=== PATIENT | female | born 1950 | race Caucasian/White ===

== ENCOUNTER → 2017-12-04 09:09 | Outpatient (CLI) | payer MEDICARE, MEDICAID, SELFPAY ==
--- NOTE | 2017-12-04 09:20 | CA_ITS ---
PROCEDURE: 2-D M-mode and color Doppler study INDICATIONS FOR THE TEST: Chest pain+ COPD Heart Murmur Tobacco Smoking Palpitations+ Fatigue Syncope Edema+ Hypertension+Diabetes Mellitus+ Rheumatic Fever SOB BURNS+Obesity+Hyperlipidemia+ Family History HD+ Additional History patient was scanned in wheelchair PATIENT INFORMATION HEIGHT: 59 WEIGHT: 186 GENDER: Female B/P: 154/82 2-D/M-MODE INTERPRETATION: 2-D MEASUREMENTS OBSERVED VALUES IN CMS Right Ventricular Dimension (RVDd) 1.7 Interventricular Septum (Thickness)(IVsd) 1.1 Left Ventricular Internal Dimensions(LVIDd) 3.6 Left Ventricular Posterior Wall (Thickness)(LVPWd) 1.1 Aortic Root 2.7 Aortic Cusp Separation 2.2 Left Atrial Dimensions (LAD) 3.0 2D 1. Left atrium is qualitatively mildly enlarged, left ventricle is normal size, there is mild concentric left ventricular hypertrophy, visually estimated ejection fraction 55% with no obvious wall motion abnormality. 2. The right atrium and right ventricle are mildly enlarged with normal contractility. 3. The aortic valve is minimally thickened and fibrosed. 4. The mitral and tricuspid valve leaflets are minimally thickened. 5. The pulmonic valve is poorly visualized. 6. No significant pericardial effusion noted. DOPPLER INTERROGATION: Doppler interrogation of the aortic, mitral and tricuspid valvular presence of mild mitral and tricuspid regurgitation, tricuspid and jet velocity insufficient for calculation of the right ventricular systolic pressure, Doppler evidence of impaired LV relaxation seen. CONCLUSION: 1. Mildly enlarged left atrium, normal left ventricular size, mild concentric left ventricular hypertrophy, visually estimated ejection fraction 55% no obvious regional wall motion abnormality. Doppler evidence of impaired LV relaxation seen. 2. Mild mitral and tricuspid regurgitation. 3. No significant pericardial effusion noted.
== END ==
PROVIDERS: PCP Internal Medicine Adolescent Medicine; Visit Provider Internal Medicine
DX: I25.10 Atherosclerotic heart disease of native coronary artery without angina pectoris (principal); I10 Essential (primary) hypertension; I50.20 Unspecified systolic (congestive) heart failure
CPT/HCPCS: 93306

== ENCOUNTER → 2019-06-01 07:35 | Outpatient (CLI) | payer MEDICARE, MEDICAID, SELFPAY ==
--- NOTE | 2019-06-01 07:37 | CA_ITS ---
PROCEDURE: 2-D M-mode and color Doppler study INDICATIONS FOR THE TEST: Chest pain COPD+ Heart Murmur Tobacco Smoking Palpitations Fatigue + Syncope Edema+ Hypertension+Diabetes Mellitus+ Rheumatic Fever SOB+BURNS+Obesity+Hyperlipidemia+ Family History HD Additional History WHEELCHAIR BOUND, CAD, PT SCANNED IN WHEELCHAIR PATIENT INFORMATION HEIGHT: 59 WEIGHT:190 GENDER: Female B/P:102/62 2-D/M-MODE INTERPRETATION: 2-D MEASUREMENTS OBSERVED VALUES IN CMS Right Ventricular Dimension (RVDd) 2.1 Interventricular Septum (Thickness)(IVsd) 1.3 Left Ventricular Internal Dimensions(LVIDd) 4.0 Left Ventricular Posterior Wall (Thickness)(LVPWd) 0.7 Aortic Root 3.1 Aortic Cusp Separation 2.0 Left Atrial Dimensions (LAD) 3.2 2D 1. Technically difficult study because of the patient's factors. 2. Left atrium is mildly enlarged, left ventricle is normal size, mild concentric left ventricular hypertrophy, visually estimated ejection fraction 50% with no regional wall motion abnormality. 3. The right atrium and right ventricle are normal size and contractility. 4. The aortic valve is thickened and calcified leaflet continue to display mobility. 5. The mitral and tricuspid valve leaflets are minimally thickened. 6. The pulmonic valve is poorly visualized. 7. No significant pericardial effusion noted. DOPPLER INTERROGATION: Doppler interrogation of the aortic, mitral and tricuspid valvular presence of mild mitral and tricuspid regurgitation, tricuspid regurgitation velocity is inadequate for calculation of the right ventricular systolic pressure, grade 1 diastolic dysfunction seen with tissue Doppler evidence of raised left atrial pressure. CONCLUSION: 1. Mildly enlarged left atrium, normal left ventricular size, mild concentric left ventricular hypertrophy, visually estimated ejection fraction 50% with no regional wall motion abnormality, grade 1 diastolic dysfunction seen with tissue Doppler evidence of raised left atrial pressure. 2. Thickened and calcified aortic valve without Doppler evidence of aortic stenosis aortic insufficiency. 3. Mild mitral and tricuspid regurgitation 4. No significant pericardial effusion noted.
== END ==
PROVIDERS: PCP Internal Medicine Adolescent Medicine; Visit Provider Nurse Practitioner Family
DX: E66.9 Obesity, unspecified (principal); I11.0 Hypertensive heart disease with heart failure; I25.10 Atherosclerotic heart disease of native coronary artery without angina pectoris; I50.20 Unspecified systolic (congestive) heart failure; R06.00 Dyspnea, unspecified
CPT/HCPCS: 93306

== ENCOUNTER → 2019-12-07 17:14 | Outpatient (CLI) | payer MEDICARE, MEDICAID, SELFPAY | PROVIDERS: PCP Internal Medicine Adolescent Medicine; Visit Provider Physician Assistant | DX: G47.33 Obstructive sleep apnea (adult) (pediatric) (principal); R06.83 Snoring; R40.0 Somnolence | CPT/HCPCS: G0399 ==

== ENCOUNTER 2020-08-05 09:31 | Emergency (ER) | payer MEDICARE, MEDICAID, SELFPAY ==
[2020-08-05 09:31] VITALS: BP 124/64; PULSE 87; RESP 18; TEMP 36.8; O2SAT 98; BMI 31.8
--- NOTE | 2020-08-05 09:36 | CT_ITS ---
PROCEDURE: CT CERVICAL SPINE WO CON CLINICAL INDICATION: FALL Neck injury with pain, contusion/abrasion or hematoma, cervical sprain/strain the COMPARISON: No exams were available for comparison TECHNIQUE: Axial images obtained with sagittal and coronal reformats. All CT scans at the facility use one or more dose reduction, viz: automated exposure control, ma/kV adjustment per patient size (including targeted exams where dose is matched to indication, i.e. head), or iterative reconstruction technique. Axial spiral CT scanning performed of the cervical spine beginning at the base of the skull and continuing to the upper T-spine. 3-D multiplanar reconstruction with 3-D manipulation of volumetric data set in image rendering was completed by the radiologist and/or technologist with the supervision of the radiologist on independent workstation. FINDINGS: There is normal alignment. No acute fracture or dislocation is evident. There is multilevel cervical spondylosis with facet arthritic changes at C3-C4 C5 and C6 C2-C3: Unremarkable. C3-C4: There is a lucent lesion involving the facet on the right at C4 measuring 5 mm and may contain a small central focus of gas possibly due to a geode. A similar lucency is present involving the C5 facet on the right. C4-C5: 3 mm anterolisthesis of C4 with degenerative disc disease. C5-C6: Degenerative disc disease. C6-C7: Degenerative disc disease. There is degenerative disc disease at T2-T3 and T3-T4. Lung apices are clear. There is concave deformity of the trachea and mainstem bronchi consistent with tracheal bronchomalacia. IMPRESSION: 1. No definite acute fracture. 2. Multilevel cervical spondylosis as described above with facet arthritic changes and probable geodes at C4 and C5 facet region on the right 3. 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
--- NOTE | 2020-08-05 09:36 | CT_ITS ---
PROCEDURE: CT HEAD/BRAIN WO CON CLINICAL INDICATION: FALL Wall with injury and pain, Head injury with headache/pain, contusion, abrasion or hematoma. Right frontal hematoma COMPARISON: No exams were available for comparison TECHNIQUE: Axial images obtained. All CT scans at the facility use one or more dose reduction, viz: automated exposure control, ma/kV adjustment per patient size (including targeted exams where dose is matched to indication, i.e. head), or iterative reconstruction technique. FINDINGS: No midline shift, mass effect, intracranial hemorrhage, hydrocephalus, or extra-axial fluid collection is evident. There is a mild degree of motion artifact which does obscure fine detail despite repeating the exam. Encephalomalacia changes are present in the left parietal lobe. There is a small right frontal scalp hematoma. The calvarium has an unremarkable appearance. No mastoid effusion. Mucosal thickening involves the maxillary sinuses inferiorly. No sinus air-fluid level. IMPRESSION: Motion artifact. No definite acute intracranial findings. Right frontal scalp hematoma Dictated by: Jose Oliveira MD 08/05/2020 10:49 Jose Oliveira MD in [facility] 08/05/2020 10:49
--- NOTE | 2020-08-05 09:40 | XR_ITS ---
PROCEDURE: XR HAND RT MIN 3V CLINICAL INDICATION: PINKY SWOLLEN Pain COMPARISON: No exams were available for comparison FINDINGS: There is a nondisplaced fracture involving the proximal aspect of the proximal phalanx of the 5th digit. No other significant anomalies are evident. IMPRESSION: Nondisplaced fracture proximal phalanx 5th digit Dictated by: Jose Oliveira MD 08/05/2020 10:55 Jose Oliveira MD in [facility] 08/05/2020 10:55
--- NOTE | 2020-08-05 09:54 | [facility].EDFALL ---
ED Disposition Clinical Impression: UTI (urinary tract infection) Qualifiers: Urinary tract infection type: acute cystitis Hematuria presence: without hematuria Qualified Code(s): N30.00 - Acute cystitis without hematuria Finger fracture, right Qualifiers: Encounter type: initial encounter Finger: little finger Fracture type: closed Phalanx: proximal Fracture alignment: nondisplaced Qualified Code(s): S62.646A - Nondisplaced fracture of proximal phalanx of right little finger, initial encounter for closed fracture Disposition: Home, Self-Care Condition on Discharge: Good Prescriptions: cephALEXin [Keflex 500mg Cap] 500 mg PO BID 7 Days #14 cap Prescription Printed Referrals: PCP,No [Primary Care Provider] - 3 days - Critical Care Critical Care Time: No Attestation: On 08/05/20, the high probability of a clinically significant, sudden or life threatening deterioration of the following system(s) required my full and direct attention, intervention and personal management. The time I documented below is in addition to time spent performing reported procedures but includes the following listed in this critical care notation. Medical Decision Making - Medical Records Medical records reviewed: Yes: I reviewed the patient's medical records. - Nelson Inquiry Pt receiving controlled substance: No Vital Signs: 08/05/20 09:31 Temperature 98.2 F Temperature Source Oral Pulse Rate [Right] 87 Respiratory Rate 18 Blood Pressure [Right Arm] 124/64 Blood Pressure Mean [Right Arm] 84 02 Sat by Pulse Oximetry 98 Oxygen Delivery Method Room Air - Lab Data Lab Results 08/05/20 09:50: WBC 9.9, RBC 4.80, Hgb 13.8, Hct 41.1, MCV 85.6, MCH 28.7, MCHC 33.5, RDW 15.5, Plt Count 207, MPV 8.4, Neut % (Auto) 75.8, Lymph % (Auto) 16.6, Cloud % (Auto) 5.9, Eos % (Auto) 1.1, Baso % (Auto) 0.5, Neut # (Auto) 7.5, Lymph # (Auto) 1.6, Cloud # (Auto) 0.6, Eos # (Auto) 0.1, Baso # (Auto) 0.1 08/05/20 09:50: Sodium 141, Potassium 4.0, Chloride 104, Carbon Dioxide 28, Anion Gap 13.0, BUN 33 H, Creatinine 0.80, Estimated Creat Clear 67, Estimated GFR 71, Est GFR ( Amer) 86, Glucose 153 H, Calcium 10.5 H 08/05/20 09:55: Urine Color Yellow, Urine Appearance Turbid, Urine pH 7.5, Ur Specific [place] 1.020, Urine Protein Negative, Urine Glucose (UA) Negative, Urine Ketones Negative, Urine Blood Trace-i, Urine Nitrate Positive, Urine Bilirubin Negative, Urine Urobilinogen 0.2, Ur Leukocyte Esterase 1+ A, Urine RBC 3-5, Urine WBC 3-5, Ur Squamous Epith Cells 3-5, Amorphous Sediment 2+, Urine Bacteria 2+ Result diagrams: 08/05/20 09:50 08/05/20 09:50 Orders (Tests/Meds): ED MEDICATIONS Generic Name Dose Route Start Last Admin Trade Name Freq PRN Reason Stop Dose Admin Ceftriaxone Sodium 1 gm/ 50 mls @ 100 mls/hr 08/05/20 10:15 Sodium Chloride IV 08/19/20 10:14 Q24H STEW Protocol ORDERS Category Date Time Status Urine Culture Stat Micro 08/05/20 09:55 Received - Radiology Data #1 Image(s): Hand Image Reviewed: Yes I reviewed the patient's radiology image Preliminary Findings: Abnormal Right fifth digit proximal phalanx fracture - CT Data CT Scan: Head, C-Spine Time Received: 11:[address] Reviewed: Yes: I have reviewed the patient's CT results Findings Narrative: No acute intracranial process, no cervical spine fracture Medical Decision Narrative: Patient with negative CT head and cervical spine here. She does have a UTI which perhaps attributes to her waxing and waning orientation. Given Rocephin here, will discharge back to halfway with prescription for Keflex. Renal function within acceptable limits, no leukocytosis or other signs of sepsis. Patient does have a proximal phalanx fracture of the right fifth digit which is chica taped to the ring finger of the same hand. Advised follow-up with primary care provider within the next several days for further evaluation. Fall HPI -
[2020-08-05 09:56] LABS: Basophils # 0.1 K/mm3 (0-0.2); Basophils % 0.5 % (0.1-2.0); Eosinophils # 0.1 K/mm3 (0.0-0.4); Eosinophils % 1.1 % (0.1-12.0); Hematocrit 41.1 % (37.0-47.0); Hemoglobin 13.8 g/dL (12.2-16.2); Lymphocytes # 1.6 K/mm3 (0.7-4.5); Lymphocytes % 16.6 % (10-50); Mean Corpuscular HGB Conc 33.5 g/dL (31.8-35.4); Mean Corpuscular Hemoglobin 28.7 pg (27.0-31.2); Mean Corpuscular Volume 85.6 fl (81-99); Mean Platelet Volume 8.4 fl (7.4-10.4); Monocytes # 0.6 K/mm3 (0.1-1.0); Monocytes % 5.9 % (1.7-9.3); Neutrophils # 7.5 K/mm3 (1.8-7.8); Neutrophils % 75.8 % (37.0-80.0); Platelet Count 207 K/mm3 (142-424); Red Cell Distribution Width 15.5 % (11.5-17.5); White Blood Count 9.9 K/mm3 (4.8-10.8)
[2020-08-05 09:58] LABS: Microscopic, Urine URINE MICROSCOPIC (MICROSCOPIC)
[2020-08-05 10:00] LABS: Appearance,Urine TURBID (Clear); Bilirubin,Urine Negative (Negative); Blood, Urine TRACE-I (Negative); Color,Urine YELLOW (Yellow); Glucose,Urine (UA) Negative (Negative); Ketones,Urine Negative (Negative); Leukocyte Esterase,Urine 1+ (Negative); Nitrate,Urine POSITIVE (Negative); PH,Urine 7.5 (5.0-8.5); Protein,Urine Negative (Negative); Urobilinogen,Urine 0.2 EU/dl (0.2)
[2020-08-05 10:00] LABS: Chloride 104 mmol/L (98-107); Sodium 141 mmol/L (136-145)
[2020-08-05 10:03] LABS: Blood Urea Nitrogen 33 mg/dl (7-17); Calcium 10.5 mg/dl (8.4-10.2); Carbon Dioxide 28 mmol/L (22.0-30.0); Creatinine Clearance Estimated 67 mL/min (50-200); Estimated Glomerular Filt Rate 71 ml/min (>60); GFR (African American) 86 ML/MIN (>60); Glucose 153 mg/dl (74-100)
[2020-08-05 10:05] LABS: Amorphous Sediment,Urine 2+ /lpf; Bacteria,Urine 2+ /lpf
[2020-08-05 11:32] VITALS: BP 109/72; PULSE 80; RESP 17; TEMP 36.8; O2SAT 95
--- NOTE | 2020-08-05 11:33 | PC.NURSE ---
CALLED [facility] FOR TRANSPORT TO RETIREMENT, REPORT CALLED TO YANNI VAZQUEZ
== END 2020-08-05 12:26 | disposition home or self-care (01) ==
PROVIDERS: Emergency Provider Emergency Medicine
DX: N30.00 Acute cystitis without hematuria (principal); S62.646A Nondisplaced fracture of proximal phalanx of right little finger, initial encounter for closed fracture; S00.90XA Unspecified superficial injury of unspecified part of head, initial encounter; W05.0XXA Fall from non-moving wheelchair, initial encounter; Y92.129 Unspecified place in nursing home as the place of occurrence of the external cause; I10 Essential (primary) hypertension; E78.5 Hyperlipidemia, unspecified; K21.9 Gastro-esophageal reflux disease without esophagitis; J44.9 Chronic obstructive pulmonary disease, unspecified; E11.9 Type 2 diabetes mellitus without complications; Z79.899 Other long term (current) drug therapy; Z88.2 Allergy status to sulfonamides; Z88.8 Allergy status to other drugs, medicaments and biological substances
CPT/HCPCS: 96365; 70450; 72125; 73130; 80048; 81001; 85025; 87086; 87088; 87186; 96367; 96374; 99283

== ENCOUNTER → 2020-08-09 13:10 | Outpatient (CLI) | payer MEDICARE, MEDICAID, SELFPAY ==
--- NOTE | 2020-08-09 14:16 | CT_ITS ---
PROCEDURE: CT HEAD/BRAIN WO CON CLINICAL INDICATION: FALL / CONCUSSION,AMS Altered mental status, altered level of consciousness, confusion, disorientation. Head injury with headache/pain, contusion, abrasion or hematoma COMPARISON: CT CT HEAD/BRAIN WO CON from 08/05/2020 TECHNIQUE: Axial images obtained. All CT scans at the facility use one or more dose reduction, viz: automated exposure control, ma/kV adjustment per patient size (including targeted exams where dose is matched to indication, i.e. head), or iterative reconstruction technique. FINDINGS: No midline shift, mass effect, intracranial hemorrhage, hydrocephalus, or extra-axial fluid collection is evident. Patient's head is tilted in the CT gantry. Encephalomalacia changes are present in the left parietal lobe. Right frontal scalp hematoma has shown some improvement. The calvarium has an unremarkable appearance. No mastoid effusion. No sinus air-fluid level. IMPRESSION: No acute intracranial finding Dictated by: Jose Oliveira MD 08/09/2020 14:34 Jose Oliveira MD in [facility] 08/09/2020 14:34
== END ==
PROVIDERS: PCP Internal Medicine Adolescent Medicine; Visit Provider Internal Medicine Adolescent Medicine
DX: R41.82 Altered mental status, unspecified (principal); S00.83XA Contusion of other part of head, initial encounter
CPT/HCPCS: 70450

== ENCOUNTER → 2020-08-23 10:06 | Outpatient (CLI) | payer MEDICARE, MEDICAID, SELFPAY ==
--- NOTE | 2020-08-23 10:13 | XR_ITS ---
PROCEDURE: XR SHOULDER LT MIN 2V CLINICAL INDICATION: left shoulder pain COMPARISON: CR CXR1 CHEST-PORTABLE from 07/04/2017 FINDINGS: There are severe osteoarthritic changes of the left shoulder joint with osteosclerosis and osteophyte formation the glenoid. The left humeral head is deformed with dysplastic changes of the humeral head suggestive of a Charcot joint. No acute fracture or dislocation IMPRESSION: Severe osteoarthritis of the left shoulder with dysplastic deformed changes of the humeral head suggestive of a Charcot joint Dictated by: Jose Oliveira MD 08/23/2020 16:47 Jose Oliveira MD in [facility] 08/23/2020 16:47
== END ==
PROVIDERS: PCP Internal Medicine Adolescent Medicine; Visit Provider Orthopaedic Surgery
DX: M25.512 Pain in left shoulder (principal)
CPT/HCPCS: 73030

== ENCOUNTER 2020-09-22 13:44 | Emergency (ER) | payer MEDICARE, MEDICAID, SELFPAY ==
[2020-09-22 13:44] VITALS: BP 128/68; PULSE 74; RESP 16; TEMP 36.6; O2SAT 98; BMI 27.3
--- NOTE | 2020-09-22 13:49 | PC.NURSE ---
Dr Rhea corbin
[2020-09-22 14:00] VITALS: BP 105/61; PULSE 78; O2SAT 96
--- NOTE | 2020-09-22 14:18 | XR_ITS ---
PROCEDURE: XR TIBIA FIBULA RT 2V CLINICAL INDICATION: fall Posttraumatic pain COMPARISON: No exams were available for comparison FINDINGS: There is a spiral nondisplaced fracture involving the distal shaft of the tibia nondisplaced. There is diffuse osteopenia. There is also nondisplaced distal fibular fracture transverse in nature. This is 6 cm proximal to the tip of the fibula. The joint spaces are well-preserved. No significant degenerative/arthritic changes. No erosive changes evident. Other findings:There is diffuse soft tissue swelling of foot IMPRESSION: Nondisplaced distal tib fib fracture with diffuse osteopenia. Dictated by: Jose Oliveira MD 09/22/2020 15:21 Jose Oliveira MD in [facility] 09/22/2020 15:21
--- NOTE | 2020-09-22 14:21 | CA_ITS ---
APPROVED REPORT Bilateral Lower Extremity Venous Study for DVT. Conversion Developer: SAI TsangT Indications Lower Extremity Edema: Bilateral swelling,pt has fx rle Risk Factors Immobility Obesity Bed Rest Vein Imaging CFV (R): compressive, spontaneous, phasic, augmentation FEM (R): compressive, spontaneous, phasic, augmentation POP (R): compressive, spontaneous, phasic, augmentation PTV (R): Compressible GSV (R): Compressible Peroneals (R):Not Visualized GAS (R): Compressible CFV (L): compressive, spontaneous, phasic, augmentation FEM (L): compressive, spontaneous, phasic, augmentation POP (L): compressive, spontaneous, phasic, augmentation PTV (L): Compressible GSV (L): Compressible Peroneals (L):Not Visualized GAS (L): Compressible Findings Study suggests no evidence of DVT of the bilateral lower extremities. Study suggests no evidence of SVT of the bilateral lower extremites. Conclusion Study suggests no evidence of DVT of the bilateral lower extremities. Study suggests no evidence of SVT of the bilateral lower extremites. Critical Notification Date: 09/22/2020 Time: 15:24 Physician Name: Dr. Garnica Electronically signed by : Jose Oliveira MD 09/22/2020 17:17:43
[2020-09-22 14:34] VITALS: BP 108/57; RESP 18; O2SAT 99
[2020-09-22 15:22] VITALS: BP 117/68; PULSE 77; RESP 20; O2SAT 94
--- NOTE | 2020-09-22 15:37 | HMH.EDFALL ---
ED Disposition Clinical Impression: Nondisplaced spiral fracture of shaft of right tibia Qualifiers: Encounter type: initial encounter Fracture type: closed Qualified Code(s): S82.244A - Nondisplaced spiral fracture of shaft of right tibia, initial encounter for closed fracture Disposition: Xfer SNF Condition on Discharge: Good Instructions: DI for Shinbone Fracture Referrals: Eduardo Moya MD [Primary Care Provider] - Masoud Gómez MD [Staff Physician] - - Critical Care Critical Care Time: No Attestation: On 09/22/20, the high probability of a clinically significant, sudden or life threatening deterioration of the following system(s) required my full and direct attention, intervention and personal management. The time I documented below is in addition to time spent performing reported procedures but includes the following listed in this critical care notation. Medical Decision Making - Medical Records Medical records reviewed: Yes: I reviewed the patient's medical records. - Nelson Inquiry Pt receiving controlled substance: No Vital Signs: 09/22/20 13:44 09/22/20 14:00 09/22/20 14:34 Temperature 98 F Temperature Source Oral Pulse Rate [Radial] 74 78 Respiratory Rate 16 18 Blood Pressure [Right Radial Artery] 128/68 105/61 L 108/57 L Blood Pressure Mean [Right Radial Artery] 88 75 74 Blood Pressure Source [Right Radial Artery] Automatic Cuff Automatic Cuff Blood Pressure Position [Right Radial Artery] Sitting Sitting Sitting 02 Sat by Pulse Oximetry 98 96 99 Oxygen Delivery Method Room Air Room Air Room Air 09/22/20 15:22 Temperature Temperature Source Pulse Rate [Radial] 77 Respiratory Rate 20 Blood Pressure [Right Radial Artery] 117/68 Blood Pressure Mean [Right Radial Artery] 84 Blood Pressure Source [Right Radial Artery] Automatic Cuff Blood Pressure Position [Right Radial Artery] Sitting 02 Sat by Pulse Oximetry 94 L Oxygen Delivery Method Room Air Orders (Tests/Meds): ED MEDICATIONS Discontinued Medications Generic Name Dose Route Start Last Admin Trade Name Freq PRN Reason Stop Dose Admin Acetaminophen 1,000 mg 09/22/20 13:47 09/22/20 14:01 Acetaminophen 500mg Tab PO 09/22/20 13:48 Not Given ONCE ONE Famotidine 20 mg 09/22/20 13:47 09/22/20 14:01 Famotidine 20mg/2ml Vial IV 09/22/20 13:48 Not Given ONCE ONE Sodium Chloride 1,000 mls @ 999 mls/hr 09/22/20 14:00 Sod Chlor 0.9% 1000ml Bag IV 09/22/20 15:00 .Q1H1M STEW Ondansetron HCl 4 mg 09/22/20 13:47 09/22/20 14:01 Ondansetron 4mg/2ml Vial IV 09/22/20 13:48 Not Given ONCE ONE Sodium Chloride 8 ml 09/22/20 13:47 Sodium Chloride 0.9% 10ml Vial IV 10/22/20 13:46 NEEDED PRN dilute pepcid ORDERS Category Date Time Status XR chest portable Stat Exams 09/22/20 13:47 Stop Req - Radiology Data #1 Image(s): Tib/Fib Image Reviewed: Yes I reviewed the patient's radiology results, Yes I reviewed the patient's radiology image Fracture of the distal right tibia with no significant displacement. - US Data US Images: Lower Extremity ED US Reviewed: Yes: I have reviewed the patient's US results Findings Narrative: No evidence of DVT in the lower extremities. - Reevaluation(s) Time: 15:42 Reevaluation #1: Evaluation, patient is feeling fine. Tolerated splinting well. Patient was sent back to intermediate facility. Needs follow-up with orthopedics. Demonstrate return precautions. Verbalized understanding. Medical Decision Narrative: 70-year-old female presented to the emergency department with leg pain. Patient has diagnosed fracture in the right tibia. Doppler studies will be obtained for possible DVT. Work-up initiated. Fall HPI - General Chief Complaint: Fall Stated Complaint: Fall Time Seen by Provider: 09/22/20 13:50 Mode of Arrival: EMS Limitations: Physical Limitations Description of Symptoms (Recalled from ER
--- NOTE | 2020-09-22 15:48 | PC.NURSE ---
posterior, stirrup splint applied
--- NOTE | 2020-09-22 15:49 | PC.NURSE ---
report called to [facility]
[2020-09-22 15:56] VITALS: BP 134/74; PULSE 78; RESP 16; TEMP 36.6; O2SAT 98
== END 2020-09-22 15:57 ==
PROVIDERS: Emergency Provider Emergency Medicine; PCP Internal Medicine Adolescent Medicine
DX: S82.244A Nondisplaced spiral fracture of shaft of right tibia, initial encounter for closed fracture (principal); W05.0XXA Fall from non-moving wheelchair, initial encounter; Y92.129 Unspecified place in nursing home as the place of occurrence of the external cause; G82.20 Paraplegia, unspecified; J44.9 Chronic obstructive pulmonary disease, unspecified; E11.9 Type 2 diabetes mellitus without complications; K21.9 Gastro-esophageal reflux disease without esophagitis; E78.5 Hyperlipidemia, unspecified; I10 Essential (primary) hypertension; Z88.2 Allergy status to sulfonamides; Z88.8 Allergy status to other drugs, medicaments and biological substances; Z79.899 Other long term (current) drug therapy
CPT/HCPCS: 29515; 73590; 93970; 99284

== ENCOUNTER → 2020-11-01 14:30 | Outpatient (CLI) | payer MEDICARE, MEDICAID, SELFPAY ==
--- NOTE | 2020-11-01 14:38 | XR_ITS ---
PROCEDURE: XR TIBIA FIBULA RT 2V CLINICAL INDICATION: right tibia spiral fracture; out of brace Follow-up fracture COMPARISON: CR XR TIBIA FIBULA RT 2V from 09/22/2020 FINDINGS: Nondisplaced oblique fracture distal tibia once again noted. Fracture line still visible although somewhat less apparent compared to the previous exam there is good alignment. There is diffuse osteopenia with mild osteoarthritic changes at the knee and at the ankle. Other findings:None. IMPRESSION: Good alignment nondisplaced distal tibial fracture. Fracture line is still visible although somewhat less apparent which may be due to some early healing Dictated by: Jose Oliveira MD 11/01/2020 17:52 Jose Oliviera MD in [facility] 11/01/2020 17:52
== END ==
PROVIDERS: PCP Internal Medicine Adolescent Medicine; Visit Provider Orthopaedic Surgery
DX: S82.244A Nondisplaced spiral fracture of shaft of right tibia, initial encounter for closed fracture (principal)
CPT/HCPCS: 73590

== ENCOUNTER → 2020-11-17 14:54 | Outpatient (CLI) | payer MEDICARE, MEDICAID, SELFPAY ==
[2020-11-17 14:58] LABS: Microscopic, Urine URINE MICROSCOPIC (MICROSCOPIC)
[2020-11-17 15:02] LABS: Appearance,Urine TURBID (Clear); Bilirubin,Urine Negative (Negative); Blood, Urine TRACE-I (Negative); Color,Urine YELLOW (Yellow); Glucose,Urine (UA) Negative (Negative); Ketones,Urine Negative (Negative); Leukocyte Esterase,Urine 2+ (Negative); Nitrate,Urine Negative (Negative); PH,Urine 8.5 (5.0-8.5); Protein,Urine TRACE (Negative); Urobilinogen,Urine 0.2 EU/dl (0.2)
[2020-11-17 15:10] LABS: Basophils % 0.2 % (0.1-2.0); Eosinophils % 0.2 % (0.1-12.0); Hematocrit 42.7 % (37.0-47.0); Hemoglobin 13.1 g/dL (12.2-16.2); Lymphocytes # 1.2 K/mm3 (0.7-4.5); Lymphocytes % 34.8 % (10-50); Mean Corpuscular HGB Conc 30.7 g/dL (31.8-35.4); Mean Corpuscular Hemoglobin 26.6 pg (27.0-31.2); Mean Corpuscular Volume 86.5 fl (81-99); Mean Platelet Volume 9.6 fl (7.4-10.4); Monocytes # 0.2 K/mm3 (0.1-1.0); Monocytes % 6.7 % (1.7-9.3); Neutrophils # 2.1 K/mm3 (1.8-7.8); Neutrophils % 58.1 % (37.0-80.0); Platelet Count 171 K/mm3 (142-424); Red Blood Count 4.93 M/mm3 (4.20-5.40); Red Cell Distribution Width 15.9 % (11.5-17.5); White Blood Count 3.6 K/mm3 (4.8-10.8)
[2020-11-17 15:13] LABS: Bacteria,Urine 2+ /lpf
[2020-11-17 15:17] LABS: Chloride 100 mmol/L (98-107)
[2020-11-17 15:18] LABS: Potassium 4.8 mmoL/L (3.5-5.1); Sodium 133 mmol/L (136-145)
[2020-11-17 15:20] LABS: Alanine Aminotransferase 51 U/L (12-78); Aspartate Amino Transferase 77 U/L (14-36); Blood Urea Nitrogen 52 mg/dl (7-17); Estimated Glomerular Filt Rate 49 ml/min (>60); GFR (African American) 59 ML/MIN (>60)
[2020-11-17 15:21] LABS: Albumin Level 3.7 g/dl (3.5-5.0); Albumin/Globulin Ratio 1.2 (1.1-1.8); Alkaline Phosphatase 89 U/L (38-126); Anion Gap 15.8 mEq/L (5-15); Bilirubin,Total 0.4 mg/dl (0.2-1.3); Calcium 10.3 mg/dl (8.4-10.2); Carbon Dioxide 22 mmol/L (22.0-30.0); Glucose 181 mg/dl (74-100); Total Protein,Serum 6.7 g/dl (6.3-8.2)
== END ==
PROVIDERS: Visit Provider Nurse Practitioner Family
DX: N39.0 Urinary tract infection, site not specified (principal); B96.29 Other Escherichia coli [E. coli] as the cause of diseases classified elsewhere
CPT/HCPCS: 80053; 81001; 85025; 87086; 87088; 87186

== ENCOUNTER → 2021-02-27 08:59 | Outpatient (CLI) | payer MEDICARE, MEDICAID, SELFPAY ==
[2021-02-27 14:53] LABS: Basophils % 0.6 % (0.1-2.0); Eosinophils # 0.1 K/mm3 (0.0-0.4); Eosinophils % 2.1 % (0.1-12.0); Hematocrit 43.4 % (37.0-47.0); Hemoglobin 13.3 g/dL (12.2-16.2); Lymphocytes # 2.7 K/mm3 (0.7-4.5); Lymphocytes % 43.3 % (10-50); Mean Corpuscular HGB Conc 30.7 g/dL (31.8-35.4); Mean Corpuscular Hemoglobin 26.9 pg (27.0-31.2); Mean Corpuscular Volume 87.6 fl (81-99); Mean Platelet Volume 9.6 fl (7.4-10.4); Monocytes # 0.4 K/mm3 (0.1-1.0); Monocytes % 6.9 % (1.7-9.3); Neutrophils # 2.9 K/mm3 (1.8-7.8); Neutrophils % 47.1 % (37.0-80.0); Platelet Count 253 K/mm3 (142-424); Red Blood Count 4.96 M/mm3 (4.20-5.40); Red Cell Distribution Width 15.8 % (11.5-17.5); White Blood Count 6.1 K/mm3 (4.8-10.8)
[2021-02-27 15:09] LABS: Alanine Aminotransferase 14 U/L (12-78); Albumin Level 3.8 g/dl (3.5-5.0); Albumin/Globulin Ratio 1.5 (1.1-1.8); Alkaline Phosphatase 106 U/L (38-126); Anion Gap 13.5 mEq/L (5-15); Aspartate Amino Transferase 24 U/L (14-36); Bilirubin,Total 0.2 mg/dl (0.2-1.3); Blood Urea Nitrogen 29 mg/dl (7-17); Calcium 10.4 mg/dl (8.4-10.2); Carbon Dioxide 31 mmol/L (22.0-30.0); Chloride 100 mmol/L (98-107); Chol/HDL Ratio 4.8 (1-3.5); Cholesterol 176 mg/dl (140-200); Estimated Glomerular Filt Rate 71 ml/min (>60); GFR (African American) 86 ML/MIN (>60); Globulin 2.6 g/dL (1.3-3.2); Glucose 198 mg/dl (74-100); HDL Cholesterol 37 mg/dl (40-60); Potassium 4.5 mmoL/L (3.5-5.1); Sodium 140 mmol/L (136-145); Total Protein,Serum 6.4 g/dl (6.3-8.2); Triglycerides 282 mg/dl (30-150); Uric Acid 8.4 mg/dl (2.5-6.2); VLDL Cholesterol 56 mg/dL (0-40)
[2021-02-27 15:20] LABS: Direct LDL Cholesterol 90.71 mg/dL (100-129); Valproic Acid, (Depakene) 66.7 ug/ml (50-100)
[2021-02-27 15:39] LABS: Thyroid Stimulating Hormone 7.16 uIU/mL (0.465-4.68)
[2021-02-27 17:48] LABS: Hemoglobin A1C 7.6 % (4.0-6.0)
== END ==
PROVIDERS: Visit Provider Internal Medicine Adolescent Medicine
DX: E11.9 Type 2 diabetes mellitus without complications (principal); I10 Essential (primary) hypertension; Z79.4 Long term (current) use of insulin
CPT/HCPCS: 36415; 80053; 80061; 80164; 83036; 84443; 84550; 85025

== ENCOUNTER → 2021-04-04 12:32 | Outpatient (CLI) | payer MEDICARE, MEDICAID, SELFPAY ==
--- NOTE | 2021-04-04 12:39 | XR_ITS ---
PROCEDURE: XR TIBIA FIBULA LT 2V CLINICAL INDICATION: left tib/fib pain COMPARISON: CR XR TIBIA FIBULA RT 2V from 09/22/2020 CR XR TIBIA FIBULA RT 2V from 11/01/2020 FINDINGS: Displaced fractures are present involving the distal tibia and fibula. There is an oblique distal tibial fracture. The distal fracture fragment is displaced medially by 17 mm. There may be some overlying developing callus formation medially. There is a displaced distal fibular fracture displaced medially by 12 mm. There is posterior displacement of the distal fracture fragments by 10 mm. There is diffuse osteopenia. IMPRESSION: Displaced distal tib fib fracture with some callus formation developing. Diffuse osteopenia Dictated by: Jose Oliveira MD 04/04/2021 12:54 Jose Oliveira MD in [facility] 04/04/2021 12:54
== END ==
PROVIDERS: PCP Internal Medicine Adolescent Medicine; Visit Provider Orthopaedic Surgery
DX: M89.8X6 Other specified disorders of bone, lower leg (principal)
CPT/HCPCS: 73590

== ENCOUNTER → 2021-04-06 09:54 | Outpatient (CLI) | payer MEDICARE, MEDICAID, SELFPAY ==
--- NOTE | 2021-04-06 09:57 | XR_ITS ---
PROCEDURE: XR DEXA AXIAL SKELETON CLINICAL INDICATION: H/O OF FX, POST MENOPAUSAL Patient is paralyzed from waist down. Multiple attempts to get a diagnostic exam. COMPARISON: CT ABDPELW/O CT ABD PELVIS W/O CONTRAST from 03/22/2015 CR XR TIBIA FIBULA LT 2V from 04/04/2021 FINDINGS: The right hip BMD is 0.606 with a T-score of -7.1. The right hip BMD is 0.159 with a T-score of -6.2. The left hip BMD is 0.259 with a T-score of -5.6. The left hip BMD is 0.165 with a T-score of -6.2 The scanogram images show and old right femoral neck fracture IMPRESSION: Osteoporosis with high fracture risk. Treatment advised. Recommend follow-up exam 1 year. Old right femoral neck fracture Dictated by: Jose Oliveira MD 04/07/2021 08:30 Jose Oliveira MD in [facility] 04/07/2021 08:30
== END ==
PROVIDERS: PCP Internal Medicine Adolescent Medicine; Visit Provider Internal Medicine Adolescent Medicine
DX: Z78.0 Asymptomatic menopausal state (principal); M81.0 Age-related osteoporosis without current pathological fracture; M85.862 Other specified disorders of bone density and structure, left lower leg
CPT/HCPCS: 77080

== ENCOUNTER → 2021-05-19 11:35 | Outpatient (CLI) | payer MEDICARE, MEDICAID, SELFPAY ==
[2021-05-19 11:39] LABS: Microscopic, Urine URINE MICROSCOPIC (MICROSCOPIC)
[2021-05-19 11:47] LABS: Appearance,Urine CLEAR (Clear); Bilirubin,Urine Negative (Negative); Blood, Urine 1+ (Negative); Color,Urine YELLOW (Yellow); Glucose,Urine (UA) 1+ (Negative); Ketones,Urine Negative (Negative); Leukocyte Esterase,Urine 3+ (Negative); Nitrate,Urine POSITIVE (Negative); Protein,Urine Negative (Negative); Urobilinogen,Urine 0.2 EU/dl (0.2)
[2021-05-19 11:53] LABS: Bacteria,Urine 1+ /lpf; WBC,Urine 20-50 #/hpf (0-3)
== END ==
PROVIDERS: Visit Provider Internal Medicine Adolescent Medicine
DX: R30.9 Painful micturition, unspecified (principal)
CPT/HCPCS: 81001; 87086; 87186

== ENCOUNTER → 2021-05-23 13:17 | Outpatient (CLI) | payer MEDICARE, MEDICAID, SELFPAY ==
--- NOTE | 2021-05-23 13:29 | XR_ITS ---
PROCEDURE: XR TIBIA FIBULA LT 2V CLINICAL INDICATION: left tibia/ fib fracture non-union COMPARISON: CR XR TIBIA FIBULA LT 2V from 04/04/2021 FINDINGS: There is generalized osteopenia. The mildly displaced fractures distal tibia fibula noted. There is callus formation fracture site likely involving interosseous membrane just proximal fracture sites. There remains a 12 mm gap of the distal tibial fracture and a 6 mm gap of the distal fibular fracture without true bony fusion. Mild to moderate posterior angulation of both fractures seen on the cross-table lateral view. 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 Estevan Womack MD 05/23/2021 14:11 Dr. Estevan Womack MD in [facility] 05/23/2021 14:11
== END ==
PROVIDERS: PCP Internal Medicine Adolescent Medicine; Visit Provider Orthopaedic Surgery
DX: S82.202K Unspecified fracture of shaft of left tibia, subsequent encounter for closed fracture with nonunion (principal); S82.402K Unspecified fracture of shaft of left fibula, subsequent encounter for closed fracture with nonunion
CPT/HCPCS: 73590

== ENCOUNTER → 2021-05-29 09:08 | Outpatient (CLI) | payer MEDICARE, MEDICAID, SELFPAY ==
[2021-05-29 13:48] LABS: Basophils # 0.1 K/mm3 (0-0.2); Basophils % 0.6 % (0.1-2.0); Eosinophils # 0.1 K/mm3 (0.0-0.4); Eosinophils % 1.4 % (0.1-12.0); Hematocrit 45.5 % (37.0-47.0); Hemoglobin 14.7 g/dL (12.2-16.2); Lymphocytes # 3.4 K/mm3 (0.7-4.5); Lymphocytes % 39.7 % (10-50); Mean Corpuscular HGB Conc 32.2 g/dL (31.8-35.4); Mean Corpuscular Hemoglobin 26.5 pg (27.0-31.2); Monocytes # 0.6 K/mm3 (0.1-1.0); Monocytes % 6.8 % (1.7-9.3); Neutrophils # 4.3 K/mm3 (1.8-7.8); Neutrophils % 51.4 % (37.0-80.0); Platelet Count 283 K/mm3 (142-424); Red Blood Count 5.55 M/mm3 (4.20-5.40); Red Cell Distribution Width 16.4 % (11.5-17.5); White Blood Count 8.4 K/mm3 (4.8-10.8)
[2021-05-29 13:54] LABS: Alanine Aminotransferase 29 U/L (12-78); Albumin Level 4.3 g/dl (3.5-5.0); Albumin/Globulin Ratio 1.5 (1.1-1.8); Alkaline Phosphatase 123 U/L (38-126); Aspartate Amino Transferase 38 U/L (14-36); Bilirubin,Total 0.5 mg/dl (0.2-1.3); Blood Urea Nitrogen 39 mg/dl (7-17); Calcium 10.8 mg/dl (8.4-10.2); Carbon Dioxide 28 mmol/L (22.0-30.0); Chloride 97 mmol/L (98-107); Estimated Glomerular Filt Rate 83 ml/min (>60); GFR (African American) 100 ML/MIN (>60); Globulin 2.9 g/dL (1.3-3.2); Glucose 164 mg/dl (74-100); HDL Cholesterol 43 mg/dl (40-60); Sodium 139 mmol/L (136-145); Total Protein,Serum 7.2 g/dl (6.3-8.2); Uric Acid 8.4 mg/dl (2.5-6.2)
[2021-05-29 13:56] LABS: Chol/HDL Ratio 4.8 (1-3.5); Cholesterol 206 mg/dl (140-200); Triglycerides 326 mg/dl (30-150); VLDL Cholesterol 65 mg/dL (0-40)
[2021-05-29 14:05] LABS: Direct LDL Cholesterol 117.92 mg/dL (100-129); Valproic Acid, (Depakene) 83.7 ug/ml (50-100)
[2021-05-29 14:26] LABS: Thyroid Stimulating Hormone 3.79 uIU/mL (0.465-4.68)
== END ==
PROVIDERS: Visit Provider Nurse Practitioner Family
DX: G82.20 Paraplegia, unspecified (principal); I10 Essential (primary) hypertension; E03.9 Hypothyroidism, unspecified; E11.9 Type 2 diabetes mellitus without complications; Z79.4 Long term (current) use of insulin; Z51.81 Encounter for therapeutic drug level monitoring; Z79.899 Other long term (current) drug therapy
CPT/HCPCS: 36415; 80053; 80061; 80164; 83036; 84443; 84550; 85025

== ENCOUNTER → 2021-09-18 07:05 | Outpatient (CLI) | payer MEDICARE, MEDICAID, SELFPAY ==
[2021-09-18 13:56] LABS: Basophils # 0.1 K/mm3 (0-0.2); Eosinophils # 0.2 K/mm3 (0.0-0.4); Eosinophils % 1.9 % (0.1-12.0); Hematocrit 46.3 % (37.0-47.0); Hemoglobin 14.2 g/dL (12.2-16.2); Lymphocytes # 3.2 K/mm3 (0.7-4.5); Lymphocytes % 29.3 % (10-50); Mean Corpuscular HGB Conc 30.7 g/dL (31.8-35.4); Mean Corpuscular Hemoglobin 26.6 pg (27.0-31.2); Mean Corpuscular Volume 86.6 fl (81-99); Mean Platelet Volume 9.4 fl (7.4-10.4); Monocytes # 0.7 K/mm3 (0.1-1.0); Monocytes % 6.7 % (1.7-9.3); Neutrophils # 6.6 K/mm3 (1.8-7.8); Platelet Count 285 K/mm3 (142-424); Red Blood Count 5.35 M/mm3 (4.20-5.40); White Blood Count 10.8 K/mm3 (4.8-10.8)
[2021-09-18 14:05] LABS: Chloride 95 mmol/L (98-107); Potassium 4.7 mmoL/L (3.5-5.1); Sodium 134 mmol/L (136-145)
[2021-09-18 14:07] LABS: Alanine Aminotransferase 17 U/L (12-78); Alkaline Phosphatase 110 U/L (38-126); Aspartate Amino Transferase 22 U/L (14-36); Bilirubin,Total 0.2 mg/dl (0.2-1.3); Blood Urea Nitrogen 30 mg/dl (7-17); Estimated Glomerular Filt Rate 99 ml/min (>60); GFR (African American) 119 ML/MIN (>60)
[2021-09-18 14:08] LABS: Albumin Level 3.4 g/dl (3.5-5.0); Albumin/Globulin Ratio 1.2 (1.1-1.8); Anion Gap 13.7 mEq/L (5-15); Calcium 10.2 mg/dl (8.4-10.2); Carbon Dioxide 30 mmol/L (22.0-30.0); Chol/HDL Ratio 5.5 (1-3.5); Cholesterol 176 mg/dl (140-200); Globulin 2.8 g/dL (1.3-3.2); Glucose 170 mg/dl (74-100); HDL Cholesterol 32 mg/dl (40-60); Total Protein,Serum 6.2 g/dl (6.3-8.2); Triglycerides 363 mg/dl (30-150); VLDL Cholesterol 73 mg/dL (0-40)
[2021-09-18 14:19] LABS: Direct LDL Cholesterol 94.43 mg/dL (100-129)
[2021-09-18 14:40] LABS: Thyroid Stimulating Hormone 6.19 uIU/mL (0.465-4.68)
[2021-09-18 15:05] LABS: Hemoglobin A1C 13.7 % (4.0-6.0)
[2021-09-18 15:10] LABS: Uric Acid 6.8 mg/dl (2.5-6.2)
[2021-11-27 23:28] LABS: Free Valproic Acid (Depakote) 12.8
== END ==
PROVIDERS: Visit Provider Nurse Practitioner Family
DX: I11.9 Hypertensive heart disease without heart failure (principal); E11.9 Type 2 diabetes mellitus without complications; R06.00 Dyspnea, unspecified; Z79.4 Long term (current) use of insulin; Z79.899 Other long term (current) drug therapy
CPT/HCPCS: 36415; 80053; 80061; 80165; 83036; 84443; 84550; 85025

== ENCOUNTER 2022-01-05 10:31 | Emergency (ER) | payer MEDICARE, MEDICAID, SELFPAY ==
[2022-01-05] VITALS (8 sets, daily range): BP systolic 124–152; BP diastolic 67–98; PULSE 31–78; RESP 15–18; TEMP 36.6–37.2; O2SAT 94–99; BMI 39.9; BMI 39.4
--- NOTE | 2022-01-05 10:39 | XR_ITS ---
PROCEDURE INFORMATION: Exam: XR Right Shoulder Exam date and time: 01/05/2022 10:39 AM Age: 71 years old Clinical indication: Pain; Shoulder; Bilateral; Additional info: R/O dislocation TECHNIQUE: Imaging protocol: XR Right shoulder. Views: 2 or more views. COMPARISON: CR CXR1 CHEST-PORTABLE 07/04/2017 6:27 PM FINDINGS: Bones/joints: No acute fracture or dislocation. Severe osteoarthritic changes at the glenohumeral articulation with subchondral cysts. Inferior subluxation noted, likely degenerative. Soft tissues: Normal. IMPRESSION: 1. No acute fracture or dislocation. 2. Severe osteoarthritic changes at the glenohumeral articulation with subchondral cysts. Inferior subluxation noted, likely degenerative.
--- NOTE | 2022-01-05 10:39 | XR_ITS ---
PROCEDURE INFORMATION: Exam: XR Left Shoulder Exam date and time: 01/05/2022 10:39 AM Age: 71 years old Clinical indication: Pain; Shoulder; Bilateral; Additional info: R/O dislocation TECHNIQUE: Imaging protocol: XR Left shoulder. Views: 2 or more views. COMPARISON: CR XR SHOULDER LT MIN 2V 08/23/2020 10:16 AM FINDINGS: Bones/joints: No acute fracture or dislocation. Severe osteoarthritic changes at the glenohumeral articulation with fragmentation and deformity of the humeral head. Charcot joint should be considered. Mild inferior subluxation. Soft tissues: Normal. IMPRESSION: No acute fracture or dislocation. Severe osteoarthritic changes at the glenohumeral articulation with fragmentation and deformity of the humeral head. Charcot joint should be considered. Mild inferior subluxation.
--- NOTE | 2022-01-05 13:26 | HMH.EDGENADL ---
ED Disposition Clinical Impression: Chronic pain of both shoulders Disposition: Home, Self-Care Condition on Discharge: Good Referrals: Eduardo Moya MD [Primary Care Provider] - - Critical Care Critical Care Time: No Attestation: On 01/05/22, the high probability of a clinically significant, sudden or life threatening deterioration of the following system(s) required my full and direct attention, intervention and personal management. The time I documented below is in addition to time spent performing reported procedures but includes the following listed in this critical care notation. Medical Decision Making - Medical Records Medical records reviewed: Yes: I reviewed the patient's medical records. - [place] Inquiry Pt receiving controlled substance: No Vital Signs: 01/05/22 10:34 01/05/22 12:00 01/05/22 12:30 Temperature 98.9 F Temperature Source Oral Pulse Rate 64 31 L Pulse Rate [Left Radial] 69 Respiratory Rate 18 16 15 Blood Pressure 127/67 125/68 Blood Pressure [Right Arm] 129/70 Blood Pressure Mean 97 87 Blood Pressure Mean [Right Arm] 89 Blood Pressure Source [Right Arm] Automatic Cuff Blood Pressure Position [Right Arm] Sitting 02 Sat by Pulse Oximetry 99 94 L 94 L Oxygen Delivery Method Room Air Nasal Cannula Nasal Cannula Oxygen Flow Rate (LPM) 2 2 01/05/22 13:00 Temperature Temperature Source Pulse Rate 74 Pulse Rate [Left Radial] Respiratory Rate 16 Blood Pressure 133/79 Blood Pressure [Right Arm] Blood Pressure Mean 97 Blood Pressure Mean [Right Arm] Blood Pressure Source [Right Arm] Blood Pressure Position [Right Arm] 02 Sat by Pulse Oximetry 94 L Oxygen Delivery Method Nasal Cannula Oxygen Flow Rate (LPM) 2 Medical Decision Narrative: Patient is a 71-year-old female presents the ED today for further evaluation of possible bilateral shoulder dislocations half-way. Patient is well-appearing on initial evaluation in no acute distress, vital signs within normal limits and stable. Reviewed report of images from half-way today, radiologist reports that the joints are not well aligned, and that the images are not optimal for the diagnosis of shoulder dislocation, we will obtain three-view images of the bilateral shoulders in order to further elucidate this, and if we are unable to obtain proper images will obtain CT scan. She does not require any pain medication at this time, has greater than expected range of motion for her degree of arthritis already on examination, although this does not exclude dislocation. X-rays obtained, radiologist feels confident on the report there is no evidence of shoulder dislocation, this is consistent with my examination given that there are no other concerns for this patient's presentation we will have her go back to the half-way today. Patient given return precautions return to the ED with any new or worsening symptoms and is verbalized understanding with this plan. General Adult HPI - General Chief complaint: Recheck/Abnormal Lab/Rx Stated complaint: pain Time Seen by Provider: 01/05/22 10:35 Mode of Arrival: EMS Limitations: Physical Limitations Description of Symptoms (Recalled from ER Triage Doc. by RN): sent per half-way due to a x-ray showing bilateral shoulder dislocation. PT states that she fell one year ago and believes this is when the injury occured - History of Present Illness HPI narrative: Patient is a 71-year-old female presents the ED today from half-way with concern for bilateral shoulder dislocations, patient was endorsing to them earlier today that patient had bilateral shoulder pain, patient has not had any traumatic falls recently, is currently in a wheelchair as she is a paraplegic and uses an electric wheelchair. half-way obtained x-rays today, which showed severe osteoarthritis of the glenohumeral joint, and with the views obtained were unable to rule out dislocation. Patient
--- NOTE | 2022-01-05 13:41 | PC.NURSE ---
[place] ambulance has been called
--- NOTE | 2022-01-05 13:43 | PC.NURSE ---
REPORT CALLED TO BILL VAZQUEZ
== END 2022-01-05 15:34 | disposition home or self-care (01) ==
PROVIDERS: Emergency Provider Student in an Organized Health Care Education/Training Program; PCP Internal Medicine Adolescent Medicine
DX: M25.511 Pain in right shoulder (principal); M25.512 Pain in left shoulder; E11.9 Type 2 diabetes mellitus without complications; K21.9 Gastro-esophageal reflux disease without esophagitis; E78.5 Hyperlipidemia, unspecified; I10 Essential (primary) hypertension; J44.9 Chronic obstructive pulmonary disease, unspecified
CPT/HCPCS: 73030; 99283

== ENCOUNTER → 2022-01-08 07:03 | Outpatient (CLI) | payer MEDICARE, MEDICAID, SELFPAY ==
[2022-01-08 14:41] LABS: Basophils # 0.1 K/mm3 (0-0.2); Basophils % 1.5 % (0.1-2.0); Eosinophils # 0.3 K/mm3 (0.0-0.4); Eosinophils % 3.3 % (0.1-12.0); Hematocrit 44.4 % (37.0-47.0); Lymphocytes # 2.8 K/mm3 (0.7-4.5); Lymphocytes % 34.4 % (10-50); Mean Corpuscular HGB Conc 31.5 g/dL (31.8-35.4); Mean Corpuscular Hemoglobin 26.8 pg (27.0-31.2); Mean Corpuscular Volume 85.1 fl (81-99); Mean Platelet Volume 10.3 fl (7.4-10.4); Monocytes # 0.7 K/mm3 (0.1-1.0); Monocytes % 8.7 % (1.7-9.3); Neutrophils # 4.2 K/mm3 (1.8-7.8); Neutrophils % 52.1 % (37.0-80.0); Platelet Count 292 K/mm3 (142-424); Red Blood Count 5.22 M/mm3 (4.20-5.40); Red Cell Distribution Width 16.3 % (11.5-17.5)
[2022-01-08 14:46] LABS: Blood Urea Nitrogen 35 mg/dl (7-17); Estimated Glomerular Filt Rate 71 ml/min (>60); GFR (African American) 86 ML/MIN (>60)
[2022-01-08 14:47] LABS: Alkaline Phosphatase 94 U/L (38-126); Bilirubin,Total 0.4 mg/dl (0.2-1.3); Carbon Dioxide 28 mmol/L (22.0-30.0)
[2022-01-08 14:58] LABS: Direct LDL Cholesterol 129.43 mg/dL (100-129)
[2022-01-08 15:12] LABS: Hemoglobin A1C 7.7 % (4.0-6.0)
[2022-01-08 15:19] LABS: Thyroid Stimulating Hormone 3.41 uIU/mL (0.465-4.68)
[2022-01-08 15:38] LABS: Anion Gap 13.5 mEq/L (5-15); Chloride 98 mmol/L (98-107); Potassium 4.5 mmoL/L (3.5-5.1); Sodium 135 mmol/L (136-145)
[2022-01-08 15:41] LABS: Alanine Aminotransferase 24 U/L (12-78); Albumin Level 3.9 g/dl (3.5-5.0); Albumin/Globulin Ratio 1.4 (1.1-1.8); Aspartate Amino Transferase 31 U/L (14-36); Calcium 10.6 mg/dl (8.4-10.2); Cholesterol 206 mg/dl (140-200); Globulin 2.8 g/dL (1.3-3.2); Glucose 148 mg/dl (74-100); Total Protein,Serum 6.7 g/dl (6.3-8.2); Triglycerides 297 mg/dl (30-150); VLDL Cholesterol 59 mg/dL (0-40)
[2022-01-08 15:42] LABS: Chol/HDL Ratio 5.4 (1-3.5); HDL Cholesterol 38 mg/dl (40-60)
[2022-01-08 17:12] LABS: Valproic Acid, (Depakene) 77.8 ug/ml (50-100)
== END ==
PROVIDERS: Visit Provider Nurse Practitioner Family
DX: M19.012 Primary osteoarthritis, left shoulder; M19.011 Primary osteoarthritis, right shoulder; I10 Essential (primary) hypertension; E78.5 Hyperlipidemia, unspecified; E11.9 Type 2 diabetes mellitus without complications; Z79.4 Long term (current) use of insulin
CPT/HCPCS: 36415; 80053; 80061; 80164; 83036; 84443; 84550; 85025

== ENCOUNTER 2025-07-25 08:53 | Outpatient (CLI) | payer MEDICARE, MEDICAID, SELFPAY ==
[2025-07-25 09:18] LABS: Hematocrit 40.8 % (37.0-47.0); Hemoglobin 12.7 g/dL (12.2-16.2); Immature Granulocytes % 0.7 %; Mean Corpuscular HGB Conc 31.1 g/dL (31.8-35.4); Mean Corpuscular Hemoglobin 27.1 pg (27.0-31.2); Mean Corpuscular Volume 87.2 fl (81-99); Nucleated Red Blood Cells % 0 %; Platelet Count 243 K/mm3 (142-424); Red Blood Count 4.68 M/mm3 (4.20-5.40); Red Cell Distribution Width-SD 53.8 fL; White Blood Count 7.6 K/mm3 (4.8-10.8)
[2025-07-25 09:49] LABS: Albumin Level 3.8 g/dl (3.5-5.0); Chloride 106 mmol/L (98-107); Potassium 4.8 mmoL/L (3.5-5.1); Sodium 144 mmol/L (136-145)
[2025-07-25 09:51] LABS: Alanine Aminotransferase 10 U/L (12-78); Anion Gap 13.8 mEq/L (5-15); Aspartate Amino Transferase 20 U/L (14-36); Blood Urea Nitrogen 28 mg/dl (7-17); Carbon Dioxide 29 mmol/L (22.0-30.0); Creatinine,Serum 0.60 mg/dl (0.52-1.04); Estimated Glomerular Filt Rate 97 ml/min (>60); GFR (African American) 118 ML/MIN (>60)
[2025-07-25 09:52] LABS: Albumin/Globulin Ratio 1.4 (1.1-1.8); Alkaline Phosphatase 122 U/L (38-126); Bilirubin,Total 0.2 mg/dl (0.2-1.3); Calcium 10.7 mg/dl (8.4-10.2); Cholesterol 204 mg/dl (140-200); Globulin 2.8 g/dL (1.3-3.2); Glucose 121 mg/dl (74-100); HDL Cholesterol 40 mg/dl (40-60); Total Protein,Serum 6.6 g/dl (6.3-8.2); Triglycerides 155 mg/dl (30-150)
[2025-07-25 10:09] LABS: Free T4 (Free Thyroxine) 1.35 ng/dl (0.78-2.19)
[2025-07-25 10:19] LABS: Thyroid Stimulating Hormone 1.64 uIU/mL (0.465-4.68)
[2025-07-25 10:36] LABS: Hemoglobin A1C 7.4 % (4.0-6.0)
== END 2025-07-25 23:59 | disposition home or self-care (01) ==
PROVIDERS: PCP Family Medicine; Visit Provider Family Medicine
DX: E03.9 Hypothyroidism, unspecified (principal); E11.9 Type 2 diabetes mellitus without complications; I10 Essential (primary) hypertension; E78.5 Hyperlipidemia, unspecified
CPT/HCPCS: 36415; 80053; 80061; 83036; 84439; 84443; 85025

== ENCOUNTER 2025-08-22 09:12 | Outpatient (CLI) | payer MEDICARE, MEDICAID, SELFPAY ==
--- NOTE | 2025-08-22 09:13 | XR_ITS ---
FINAL REPORT CLINICAL HISTORY: left shoulder pain COMPARISON: None FINDINGS: 2 views of the left shoulder were obtained. There is no fracture or dislocation. There is advanced degenerative disease in the left shoulder with deformity of the humeral head. Underlying avascular necrosis is not excluded. Soft tissues are unremarkable. IMPRESSION: Advanced degenerative change of the left shoulder, with deformity of the humeral head. Underlying avascular necrosis is not excluded. Reviewed, Interpreted and Dictated by Oneida Bird MD Transcribed by Dolores Platt Authenticated and [facility]
== END 2025-08-22 23:59 | disposition home or self-care (01) ==
LOC: RAD 09:13
PROVIDERS: Visit Provider Physician Assistant Surgical
DX: M19.012 Primary osteoarthritis, left shoulder (principal); M21.822 Other specified acquired deformities of left upper arm
CPT/HCPCS: 73030

== ENCOUNTER 2025-08-25 11:25 | Emergency (ER) | payer MEDICARE, MEDICAID, SELFPAY ==
[2025-08-25] VITALS (14 sets, daily range): BP systolic 73–187; BP diastolic 57–105; PULSE 81–98; RESP 16–25; TEMP 36.8–37.2; O2SAT 90–96; BMI 36.2
--- NOTE | 2025-08-25 11:36 | ECG_ITS ---
APPROVED REPORT Exam: Resting ECG HR:107 bpm ECG Measurements Heart Rate 107 AXES WA 181 P 70 QRSd 96 QRS 26 QT 326 T 57 QTc 389 Conclusion SINUS TACHYCARDIA ABNORMAL RHYTHM ECG UNCONFIRMED REPORT Electronically signed by : AMANDA APPLE, 08/26/2025 03:58:48
--- NOTE | 2025-08-25 11:50 | CT_ITS ---
FINAL REPORT TECHNIQUE: Axial imaging of the chest is obtained after the administration of contrast. 3-D MIP reformatted images were also obtained and reviewed per PE protocol. CLINICAL HISTORY: sob, prev pneumonia COMPARISON: None FINDINGS: Exam is limited for diagnosis of dissection due to poor timing of the contrast bolus. There is no evidence of aneurysm. No central pulmonary embolism. Heart size is normal. There is no mediastinal, hilar, or axillary lymphadenopathy. There is a large hiatal hernia. Inferior right upper lobe ground-glass opacity and ground-glass opacity in the superior segment of the right lower lobe could be infectious or inflammatory, or related to mild edema. There is left lower lobe atelectasis.. There is no pleural or pericardial effusion. Limited evaluation of the upper abdomen is without acute abnormality. There is advanced degenerative disease of both shoulders. Multiple calcified loose bodies are present within the joint on the left. Remaining osseous structures are without acute abnormality. IMPRESSION: Limited exam for dissection due to timing of the bolus. No central PE. Right upper and lower lobe ground-glass opacity could be infectious, inflammatory, or neoplastic. Reviewed, Interpreted and Dictated by Oneida Bird MD Transcribed by Isidra Durand Authenticated and [facility]
[2025-08-25 11:56] LABS: Coronavirus 19, PCR Not Detected (NotDetected); Influenza A, PCR Not Detected (NotDetected); Influenza B, PCR Not Detected (NotDetected)
[2025-08-25 11:57] LABS: Hematocrit 42.8 % (37.0-47.0); Hemoglobin 13.8 g/dL (12.2-16.2); Immature Granulocytes % 0.5 %; Mean Corpuscular HGB Conc 32.2 g/dL (31.8-35.4); Mean Corpuscular Hemoglobin 27.4 pg (27.0-31.2); Mean Corpuscular Volume 85.1 fl (81-99); Nucleated Red Blood Cells % 0 %; Platelet Count 241 K/mm3 (142-424); Red Blood Count 5.03 M/mm3 (4.20-5.40); Red Cell Distribution Width-SD 51.8 fL; White Blood Count 16.6 K/mm3 (4.8-10.8)
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
--- NOTE | 2025-08-25 12:01 | XR_ITS ---
FINAL REPORT CLINICAL HISTORY: shoulder pain, patient unable to recall what happened. cannot move arm due to pain FINDINGS: LEFT SHOULDER Three views were obtained. Exam is limited due to technique and osteopenia. No gross dislocation is identified. Fracture is not excluded. The AC joint is intact. IMPRESSION: Limited exam. Fracture is not excluded. Consider CT or MRI for further evaluation. Reviewed, Interpreted and Dictated by Oneida Bird MD Transcribed by Salome Cates Authenticated and [facility]
[2025-08-25 12:02] LABS: Lactate Venous 2.2 mmol/L (0.4-2.0); VBG HCO3 22.0 mmol/L (23-30); VBG PCO2 42.3 mmol/L (35-51); VBG PH 7.33 mmol/L (7.31-7.41); VBG PO2 47.7 mmol/L (28-40)
[2025-08-25 12:04] LABS: Albumin Level 4.2 g/dl (3.5-5.0); Chloride 100 mmol/L (98-107)
[2025-08-25 12:05] LABS: Potassium 4.3 mmoL/L (3.5-5.1); Sodium 139 mmol/L (136-145)
[2025-08-25 12:07] LABS: Alanine Aminotransferase 15 U/L (12-78); Albumin/Globulin Ratio 1.1 (1.1-1.8); Alkaline Phosphatase 126 U/L (38-126); Anion Gap 16.3 mEq/L (5-15); Aspartate Amino Transferase 34 U/L (14-36); Bilirubin,Total 0.4 mg/dl (0.2-1.3); Blood Urea Nitrogen 28 mg/dl (7-17); Carbon Dioxide 27 mmol/L (22.0-30.0); Creatine Kinase 60 U/L (30-135); Creatinine Clearance Estimated 71 mL/min (50-200); Creatinine,Serum 0.60 mg/dl (0.52-1.04); Estimated Glomerular Filt Rate 97 ml/min (>60); GFR (African American) 118 ML/MIN (>60); Globulin 3.9 g/dL (1.3-3.2); Total Protein,Serum 8.1 g/dl (6.3-8.2)
[2025-08-25 12:08] LABS: Calcium 11.1 mg/dl (8.4-10.2); Glucose 167 mg/dl (74-100)
[2025-08-25 12:22] LABS: Troponin I < 0.01 ng/ml (0.00-0.034)
[2025-08-25 12:27] LABS: Lipase 192 U/L (23-300)
[2025-08-25 12:30] LABS: NT Pro Brain Natriuretic Pep. 117 pg/mL (0-450)
[2025-08-25 12:36] LABS: RBC Morphology Normal; Total Cells Counted 100
[2025-08-25] MEDS: IOPAMIDOL-370 (76%);100ML BOTTLE 80 ML IV (12:48)
[2025-08-25 13:40] LABS: Microscopic, Urine URINE MICROSCOPIC (MICROSCOPIC)
[2025-08-25 14:07] LABS: Bilirubin,Urine Negative (Negative); Color,Urine YELLOW (Yellow); Glucose,Urine (UA) Negative (Negative); Ketones,Urine Negative (Negative); Leukocyte Esterase,Urine 1+ (Negative); PH,Urine 7.0 (5.0-8.5); Protein,Urine Negative (Negative); Specific Gravity, Urine <= 1.005 (1.005-1.030); Urobilinogen,Urine 0.2 EU/dl (0.2)
[2025-08-25 14:29] LABS: Bacteria,Urine 1+ /lpf
[2025-08-25 14:41] LABS: Troponin I < 0.01 ng/ml (0.00-0.034)
[2025-08-25 16:02] LABS: Reflex Lactic Add Lactic Reflex
--- NOTE | 2025-08-26 16:22 | PC.NURSE ---
Prelim urine culture discussed with . No changed needed to treatment.
== END 2025-08-25 16:43 ==
PROVIDERS: Emergency Provider Emergency Medicine
DX: J18.9 Pneumonia, unspecified organism (principal); N39.0 Urinary tract infection, site not specified; R06.02 Shortness of breath; M25.512 Pain in left shoulder; G89.29 Other chronic pain
CPT/HCPCS: 71275; 73030; 80053; 81001; 82550; 82803; 83690; 83880; 84484; 85007; 85025; 87086; 87088; 87186; 87636; 93005; 99285; Q9967

== ENCOUNTER 2025-09-19 07:53 | Outpatient (CLI) | payer MEDICARE, MEDICAID, SELFPAY | END 2025-09-19 23:59 | disposition home or self-care (01) | PROVIDERS: PCP Family Medicine; Visit Provider Family Medicine | DX: R19.7 Diarrhea, unspecified (principal) ==

== ENCOUNTER 2025-09-19 18:10 | Outpatient (CLI) | payer MEDICARE, MEDICAID, SELFPAY ==
[2025-09-19 18:30] LABS: Cyclospora Cayetanesis Not Detected (NotDetected); Salmonella, PCR Not Detected (NotDetected); Shiga-like toxin E coli Not Detected (NotDetected); Shigella Enterovasive E coli Not Detected (NotDetected); Vibrio, PCR Not Detected (NotDetected); Yersinia Entercolitica, PCR Not Detected (NotDetected)
[2025-09-20 14:40] LABS: Clostridium Difficile A/B, PCR Detected (NotDetected)
== END 2025-09-19 23:59 | disposition home or self-care (01) ==
PROVIDERS: PCP Family Medicine; Visit Provider Family Medicine
DX: G82.20 Paraplegia, unspecified (principal)
CPT/HCPCS: 87506

== ENCOUNTER 2025-10-05 17:40 | Outpatient (CLI) | payer MEDICARE, MEDICAID, SELFPAY ==
[2025-10-05 17:44] LABS: Adenovirus F 40/41, stool Not Detected (NotDetected); Clostridium Difficile A/B, PCR Not Detected (NotDetected); Cyclospora Cayetanesis Not Detected (NotDetected); Plesimonas Shigalloides, PCR Not Detected (NotDetected); Salmonella, PCR Not Detected (NotDetected); Shiga-like toxin E coli Not Detected (NotDetected); Shigella Enterovasive E coli Not Detected (NotDetected); Vibrio, PCR Not Detected (NotDetected); Yersinia Entercolitica, PCR Not Detected (NotDetected)
== END 2025-10-05 23:59 | disposition home or self-care (01) ==
PROVIDERS: PCP Family Medicine; Visit Provider Family Medicine
DX: I50.32 Chronic diastolic (congestive) heart failure (principal)
CPT/HCPCS: 87507

== ENCOUNTER 2025-11-07 09:08 | Outpatient (CLI) | payer MEDICARE, MEDICAID, SELFPAY ==
[2025-11-07 09:18] LABS: Microscopic, Urine URINE MICROSCOPIC (MICROSCOPIC)
[2025-11-07 09:23] LABS: Hematocrit 43.3 % (37.0-47.0); Hemoglobin 13.4 g/dL (12.2-16.2); Immature Granulocytes % 0.7 %; Mean Corpuscular HGB Conc 30.9 g/dL (31.8-35.4); Mean Corpuscular Hemoglobin 26.4 pg (27.0-31.2); Mean Corpuscular Volume 85.2 fl (81-99); Nucleated Red Blood Cells % 0 %; Platelet Count 210 K/mm3 (142-424); Red Blood Count 5.08 M/mm3 (4.20-5.40); Red Cell Distribution Width-SD 55.2 fL; White Blood Count 5.9 K/mm3 (4.8-10.8)
[2025-11-07 09:25] LABS: Bilirubin,Urine Negative (Negative); Color,Urine YELLOW (Yellow); Glucose,Urine (UA) Negative (Negative); Ketones,Urine Negative (Negative); Leukocyte Esterase,Urine 3+ (Negative); PH,Urine 7.5 (5.0-8.5); Protein,Urine 1+ (Negative); Specific Gravity, Urine 1.010 (1.005-1.030); Urobilinogen,Urine 0.2 EU/dl (0.2)
[2025-11-07 09:39] LABS: Amorphous Sediment,Urine 2+ /lpf; Bacteria,Urine 2+ /lpf; WBC,Urine 20-50 #/hpf (0-3)
[2025-11-07 09:58] LABS: Alanine Aminotransferase 22 U/L (12-78); Albumin Level 3.8 g/dl (3.5-5.0); Albumin/Globulin Ratio 1.3 (1.1-1.8); Alkaline Phosphatase 109 U/L (38-126); Anion Gap 10.7 mEq/L (5-15); Aspartate Amino Transferase 35 U/L (14-36); Bilirubin,Total 0.3 mg/dl (0.2-1.3); Blood Urea Nitrogen 24 mg/dl (7-17); Calcium 10.8 mg/dl (8.4-10.2); Carbon Dioxide 28 mmol/L (22.0-30.0); Chloride 103 mmol/L (98-107); Creatinine,Serum 0.70 mg/dl (0.52-1.04); Estimated Glomerular Filt Rate 82 ml/min (>60); GFR (African American) 99 ML/MIN (>60); Globulin 3.0 g/dL (1.3-3.2); Glucose 109 mg/dl (74-100); Potassium 4.7 mmoL/L (3.5-5.1); Sodium 137 mmol/L (136-145); Total Protein,Serum 6.8 g/dl (6.3-8.2)
== END 2025-11-07 23:59 | disposition home or self-care (01) ==
LOC: LAB.DROPOF 09:09
PROVIDERS: PCP Family Medicine; Visit Provider Family Medicine
DX: R50.9 Fever, unspecified (principal)
CPT/HCPCS: 36415; 80053; 81001; 85025; 87086; 87088

== ENCOUNTER 2025-11-11 09:49 | Outpatient (CLI) | payer MEDICARE, MEDICAID, SELFPAY ==
[2025-11-11 10:17] LABS: Anion Gap 15.6 mEq/L (5-15); Blood Urea Nitrogen 30 mg/dl (7-17); Calcium 11.4 mg/dl (8.4-10.2); Carbon Dioxide 30 mmol/L (22.0-30.0); Chloride 103 mmol/L (98-107); Creatinine,Serum 0.80 mg/dl (0.52-1.04); Estimated Glomerular Filt Rate 70 ml/min (>60); GFR (African American) 85 ML/MIN (>60); Glucose 136 mg/dl (74-100); Potassium 5.6 mmoL/L (3.5-5.1); Sodium 143 mmol/L (136-145)
[2025-11-11 10:22] LABS: Valproic Acid, (Depakene) 26.9 ug/ml (50-100)
[2025-11-11 10:38] LABS: Hemoglobin A1C 7.3 % (4.0-6.0)
== END 2025-11-11 23:59 | disposition home or self-care (01) ==
LOC: LAB.DROPOF 09:50
PROVIDERS: PCP Family Medicine; Visit Provider Nurse Practitioner Family
DX: E11.9 Type 2 diabetes mellitus without complications (principal); R79.89 Other specified abnormal findings of blood chemistry; Z13.228 Encounter for screening for other metabolic disorders
CPT/HCPCS: 36415; 80048; 80164; 83036

== ENCOUNTER 2025-11-14 09:34 | Outpatient (CLI) | payer MEDICARE, MEDICAID, SELFPAY ==
[2025-11-14 10:14] LABS: Chloride 101 mmol/L (98-107); Potassium 4.8 mmoL/L (3.5-5.1); Sodium 138 mmol/L (136-145)
[2025-11-14 10:17] LABS: Anion Gap 11.8 mEq/L (5-15); Blood Urea Nitrogen 31 mg/dl (7-17); Calcium 10.4 mg/dl (8.4-10.2); Carbon Dioxide 30 mmol/L (22.0-30.0); Creatinine,Serum 0.60 mg/dl (0.52-1.04); Estimated Glomerular Filt Rate 97 ml/min (>60); GFR (African American) 118 ML/MIN (>60); Glucose 168 mg/dl (74-100)
== END 2025-11-14 23:59 | disposition home or self-care (01) ==
LOC: LAB.DROPOF 09:35
PROVIDERS: Nurse Practitioner Family; PCP Family Medicine; Visit Provider Family Medicine
DX: Z13.6 Encounter for screening for cardiovascular disorders (principal)
CPT/HCPCS: 36415; 80048